=== PATIENT | female | born 1940 | race Caucasian/White ===

== ENCOUNTER → 2016-08-13 | Outpatient (CLI) | payer MEDICARE ==
[~2016-08-13] MED LIST: AMIODARONE 200200 MG PO; ASPIRIN 81MG TA81 MG PO; BISOPROLOL 5MG T5 MG PO; BUSPIRONE HCL15 MG PO; CARDURA2 MG PO; COREG 6.25MG6.25 MG PO; DILTIAZEM CD 2240 MG PO; ELIQUIS5 MG PO; FUROSEMIDE40 MG PO; GENTAMICIN O5 ML/BOT OP; HYDROCHLOROTHIA25 M1 PO; LEVOTHYROXINE0.05 MG NG; LIPITOR80 MG PO; LISINOPRIL40 MG PO; PLAVIX75 MG PO
--- NOTE | 2016-08-13 23:14 | RADIOLOGY REPORT PS360 ---
KNEE-3 VIEWS-LT Ordering Physician: CANDELARIO VIEYRA APRN Patient Age: 75 years: Female HISTORY: LEFT KNEE PAIN TECHNIQUE: 3 views left knee FINDINGS Degenerative Arthritic changes left knee. Arthritis Most evident at medial compartment, followed by patellofemoral joint. Narrowing medial compartment is moderately pronounced. Mild sclerotic changes about the medial compartment. Lateral compartment unremarkable. Tricompartmental marginal osteophytes most evident about medial margin medial compartment and inferior margin of patella. Minimal increased joint fluid suprapatella bursa.. There is spurring IMPRESSION: = Moderate pronounced Degenerative arthritic changes most evident at the medial compartment, followed by patellofemoral joint
== END ==
LOC: RAD 16:15
DX: M25.562 Pain in left knee (principal)